=== PATIENT | female | born 1980 | race Hispanic/Latino ===

== ENCOUNTER 2022-10-04 11:00 | Observation (INO) | payer BC ==
[2022-09-30 14:07] LABS: ANION GAP 12.9 mmol/L (8-16); CREATININE, SERUM 0.6 mg/dL (0.57-1.11); POTASSIUM 3.9 mmol/L (3.5-5.1)
[2022-09-30 14:10] LABS: CALCIUM 6.5 mg/dL (8.4-10.2)
[2022-09-30 14:36] LABS: BASOPHILS % 0.5 % (0.0-1.0); EOSINOPHILS # (AUTO) 0.2 (0.0-0.4); EOSINOPHILS % 3.8 % (0.0-6.0); HEMATOCRIT 39.7 % (34.2-44.1); HEMOGLOBIN 12.8 g/dL (12.0-16.0); LYMPHOCYTES # (AUTO) 1.4 (1.0-3.2); LYMPHOCYTES % 24.3 % (18.0-39.1); MEAN CORPUSCULAR HEMOGLOBIN 33.3 pg (28-32); MEAN CORPUSCULAR HGB CONC 32.2 g/dL (31-35); MEAN CORPUSCULAR VOLUME 103.4 fL (81-99); MONOCYTES # (AUTO) 0.5 (0.2-0.8); MONOCYTES % 7.9 % (4.4-11.3); NEUTROPHILS # (AUTO) 3.7 (2.1-6.9); PLATELET COUNT 190 x10e3/uL (140-360); RED BLOOD COUNT 3.84 x10e6/uL (3.6-5.1); RED CELL DISTRIBUTION WIDTH 13.1 % (11.7-14.4)
[~2022-10-04] VITALS: Ht 160 cm; Wt 92.5 kg
[~2022-10-04 11:00] MED LIST: BUPIVACAINE 0.5%/EPI 30 ML SDV INJ ONE; FENTANYL CITRATE/PF 100MCG/2 ML INJ ONE; LACTATED RINGER'S 1,000 ML ONE; LO LOESTRIN FE1 EACH PO; MIDAZOLAM HCL 2 MG/2 ML VIAL ONE; OMEPRAZOLE40 MG PO
[2022-10-04] MEDS ORDERED: LIDOCAINE HCL 1% LOCAL INJ 20 ML VIAL ONE (11:53)
[2022-10-04] MEDS ORDERED: KETOROLAC TROMETHAMINE 30 MG/ML VIAL ONE (12:22)
[2022-10-04] MEDS ORDERED: DEXAMETHASONE SOD PHOS INJ 4 MG/ML SDV ONE (12:22)
[2022-10-04] MEDS ORDERED: PROPOFOL IV EMULSION 10 MG/ML 20 ML VIAL ONE (12:22)
[2022-10-04] MEDS ORDERED: ROCURONIUM BROMIDE 10 MG/ML 5ML VIAL IV ONE (12:22)
[2022-10-04] MEDS ORDERED: POVIDONE IODINE 0.05% 0.05 % ML PO ONE (12:22)
[2022-10-04] MEDS ORDERED: LIDOCAINE HCL 2% LOCAL INJ 5 ML SDV VIAL INJ ONE (12:22)
[2022-10-04] MEDS ORDERED: ONDANSETRON HCL INJ 2MG/ML 2ML 2 MG/ML VIAL ONE (12:22)
[2022-10-04] MEDS ORDERED: SODIUM CHLORIDE 0.9% 1000ML 1,000 ML IV SCH (12:45)
[2022-10-04] MEDS ORDERED: KETOROLAC TROMETHAMINE 30 MG/ML VIAL IV PRN (12:45)
[2022-10-04] MEDS ORDERED: HYDROMORPHONE 1MG/1ML INJ IV ONE (12:50)
[2022-10-04] MEDS: HYDROMORPHONE 1MG/1ML INJ IV PRN (17:27)
[2022-10-04 19:01] VITALS: BP 102/66
[2022-10-04 20:00] VITALS: BP 97/60
[2022-10-04] MEDS: LACTATED RINGER'S 1,000 ML INJ SCH (20:51)
[2022-10-04] MEDS: HYDROCODONE/APAP 7.5MG-325MG 1 EA TAB PO PRN (22:15)
[2022-10-05] VITALS (8 sets, daily range): BP systolic 90–104; BP diastolic 58–68
[2022-10-05] MEDS: HYDROMORPHONE 1MG/1ML INJ IV PRN ×6 (04:05→21:14)
[2022-10-05] MEDS: ONDANSETRON HCL INJ 2MG/ML 2ML 2 MG/ML VIAL IV PRN ×2 (04:05→21:14)
[2022-10-05] MEDS: LACTATED RINGER'S 1,000 ML INJ SCH ×2 (05:52→17:25)
[2022-10-05 05:58] LABS: BASOPHILS % 0.3 % (0.0-1.0); EOSINOPHILS # (AUTO) 0.2 (0.0-0.4); EOSINOPHILS % 1.6 % (0.0-6.0); HEMATOCRIT 34.2 % (34.2-44.1); HEMOGLOBIN 10.8 g/dL (12.0-16.0); LYMPHOCYTES # (AUTO) 1.3 (1.0-3.2); LYMPHOCYTES % 13.6 % (18.0-39.1); MEAN CORPUSCULAR HEMOGLOBIN 33.4 pg (28-32); MEAN CORPUSCULAR HGB CONC 31.6 g/dL (31-35); MEAN CORPUSCULAR VOLUME 105.9 fL (81-99); MONOCYTES # (AUTO) 0.4 (0.2-0.8); MONOCYTES % 4.6 % (4.4-11.3); NEUTROPHILS # (AUTO) 7.6 (2.1-6.9); NEUTROPHILS % 79.5 % (38.7-80.0); PLATELET COUNT 174 x10e3/uL (140-360); RED BLOOD COUNT 3.23 x10e6/uL (3.6-5.1); RED CELL DISTRIBUTION WIDTH 12.9 % (11.7-14.4)
[2022-10-05 06:20] LABS: ANION GAP 11.4 mmol/L (8-16); CREATININE, SERUM 0.63 mg/dL (0.57-1.11); POTASSIUM 3.4 mmol/L (3.5-5.1)
[2022-10-05 06:22] LABS: CALCIUM 6.5 mg/dL (8.4-10.2)
[2022-10-05] MEDS: HYDROCODONE/APAP 7.5MG-325MG 1 EA TAB PO PRN (10:11)
[2022-10-05] MEDS ORDERED: CALCITRIOL 0.25 MCG CAP PO ONE (14:35)
[2022-10-05] MEDS ORDERED: CALTRATE 600 W1 EACH PO (14:45)
[2022-10-05] MEDS ORDERED: CALCIUM GLUC 1 G/50 ML NACL 50 ML IV ONE (16:00)
[2022-10-05] MEDS: INSULIN LISPRO 100 UNIT/1 ML 3ML VIAL SQ SCH ×2 (16:30→20:12)
[2022-10-05] MEDS: CALCIUM CARBONATE 500 MG CHEWABLE TABS PO SCH ×2 (17:18→21:13)
[2022-10-05] MEDS ORDERED: OYST-CAL-D 500MG TABLET PO SCH (18:00)
[2022-10-06] VITALS (8 sets, daily range): BP systolic 96–116; BP diastolic 56–74
[2022-10-06] MEDS: LACTATED RINGER'S 1,000 ML INJ SCH ×3 (00:23→21:44)
[2022-10-06] MEDS: HYDROMORPHONE 1MG/1ML INJ IV PRN ×7 (00:23→21:44)
[2022-10-06] MEDS: INSULIN LISPRO 100 UNIT/1 ML 3ML VIAL SQ SCH ×4 (07:30→21:00)
[2022-10-06] MEDS: CALCIUM CARBONATE 500 MG CHEWABLE TABS PO SCH ×4 (10:01→21:44)
[2022-10-06] MEDS: HYDROCODONE/APAP 7.5MG-325MG 1 EA TAB PO PRN (12:20)
[2022-10-06] MEDS ORDERED: ONDANSETRON HCL 4 MG ORAL DISINTEGRATING TAB PO PRN (14:00)
[2022-10-06] MEDS: CALCIUM GLUCONATE IV SCH ×2 (15:44→21:44)
[2022-10-06] MEDS: SODIUM CHLORIDE 0.9% IV SCH ×2 (15:44→21:44)
[2022-10-06 16:10] LABS: ANION GAP 11.4 mmol/L (8-16); CALCIUM 7.3 mg/dL (8.4-10.2); CREATININE, SERUM 0.55 mg/dL (0.57-1.11); POTASSIUM 4.4 mmol/L (3.5-5.1)
[2022-10-06] MEDS: PANTOPRAZOLE SOD 40 MG TABEC PO SCH (18:32)
[2022-10-07] MEDS: CALCIUM GLUCONATE IV SCH ×3 (00:30→09:19)
[2022-10-07] MEDS: SODIUM CHLORIDE 0.9% IV SCH ×3 (00:30→09:19)
[2022-10-07 00:38] VITALS: BP 100/56
[2022-10-07] MEDS: HYDROMORPHONE 1MG/1ML INJ IV PRN ×4 (01:20→12:27)
[2022-10-07 06:01] VITALS: BP 102/66
[2022-10-07 07:09] LABS: ANION GAP 10.1 mmol/L (8-16); CALCIUM 7.8 mg/dL (8.4-10.2); CREATININE, SERUM 0.59 mg/dL (0.57-1.11); POTASSIUM 4.1 mmol/L (3.5-5.1)
[2022-10-07] MEDS: INSULIN LISPRO 100 UNIT/1 ML 3ML VIAL SQ SCH ×2 (07:30→11:30)
[2022-10-07 08:52] VITALS: BP 115/65
[2022-10-07] MEDS: LACTATED RINGER'S 1,000 ML INJ SCH (09:19)
[2022-10-07 09:20] VITALS: BP 115/65
[2022-10-07] MEDS: CALCIUM CARBONATE 500 MG CHEWABLE TABS PO SCH (09:20)
[2022-10-07] MEDS: PANTOPRAZOLE SOD 40 MG TABEC PO SCH (09:20)
[2022-10-07 12:34] VITALS: BP 109/73
== END 2022-10-07 14:15 | disposition home or self-care (01) ==
LOC: OR 11:00 → PACU V 12:44 → MED/SURG2 16:40
PROVIDERS: ADMIT Surgery; ATTEND Surgery
DX: K43.9 Ventral hernia without obstruction or gangrene (principal); K21.9 Gastro-esophageal reflux disease without esophagitis; I10 Essential (primary) hypertension; E83.51 Hypocalcemia; Z01.810 Encounter for preprocedural cardiovascular examination; Z01.812 Encounter for preprocedural laboratory examination; Z98.84 Bariatric surgery status
CPT/HCPCS: 36415 ×4; 49593; 80048 ×4; 81025; 82948 ×3; 85025 ×2; 93005; C1781; C9113 ×2; G0378 ×4; J0610; J0690 ×2; J1100; J1170 ×4; J1885 ×2; J2001 ×2; J2250; J2405 ×2; J2704; J3010; J7030; J7050; J7121 ×4; Q0162; S0164 ×2; J0612